=== PATIENT | male | born 1945 | race Caucasian/White ===

== ENCOUNTER 2016-10-31 19:35 | Emergency (ER) | payer OTHER ==
[~2016-10-31] VITALS: Ht 185.4 cm; Wt 149.7 kg
[2016-10-31 20:00] VITALS: BP 133/93; PULSE 85; RESP 18; TEMP 97.4; O2SAT 98
--- NOTE | 2016-10-31 20:21 | NUR ---
Patient to ER bed 4 to gown for evaluation. Side rails up. Report given to SHANAE PATTERSON.
--- NOTE | 2016-10-31 20:25 | NUR ---
Pt came into the ER in stable condition. Pt c/o right toe swelling, redness and discharge x10 days. Pt stated that it started on the big toe and now has since spread to all 5 toes. Pt states that there is pain on palpation. Pt is able to ambulate w/ steady gait. Pt has hx of ulcerative colitis, HTN,prostate and Afib. Pt stated he was at [facility] this afternoon and was sent to ER by PMD. -sob -chest pain. -fever. No acute distress noted at this time, will continue to monitor
--- NOTE | 2016-10-31 20:55 | NUR ---
ER at bedside examining patient.
[2016-10-31] MEDS ORDERED: BACITRACIN 1 GM OINT TP ONE ×2 (21:15→21:43)
[2016-10-31] MEDS ORDERED: CEFAZOLIN 1 GM IVPB PREMIX 50 ML IV ONE (21:15)
[2016-10-31 21:33] LABS: EOSINOPHILS # (AUTO) 0.3 K/uL (0.0-0.4); MEAN CORPUSCULAR HEMOGLOBIN 30 pg (27-31); MEAN CORPUSCULAR HGB CONC 33 % (32-36); MEAN CORPUSCULAR VOLUME 90 fL (79.0-98.0); MONOCYTES # (AUTO) 0.8 K/uL (0.0-1.0)
[2016-10-31 21:36] LABS: CALCIUM 9.6 mg/dL (8.4-11.0); CREATININE 0.98 mg/dL (0.55-1.30); POTASSIUM 3.8 mmol/L (3.5-5.1)
[2016-10-31 21:37] LABS: PROTHROMBIN TIME 21.7 SECS (9.5-12.5)
[2016-10-31 21:40] LABS: BASOPHILS % (AUTO) 0.5 % (0.0-2.0); EOSINOPHILS % (AUTO) 3.4 % (0.0-4.0); HEMATOCRIT 44.7 % (36-54); HEMOGLOBIN 14.8 g/dL (14.0-18.0); LYMPHOCYTES # (AUTO) 2.2 K/uL (1.0-5.5); LYMPHOCYTES % (AUTO) 25.5 % (20.5-51.5); MONOCYTES % (AUTO) 8.7 % (1.7-9.3); NEUTROPHILS # (AUTO) 5.3 K/uL (1.8-7.7); NEUTROPHILS % (AUTO) 61.9 % (40.0-70.0); PLATELET COUNT (AUTO) 167 K/uL (130-430); RED BLOOD CELL COUNT(AUTO) 4.94 MIL/uL (4.2-6.2); RED CELL DISTRIBUTION WIDTH 13.9 % (9.0-15.0); WHITE BLOOD COUNT (AUTO) 8.6 K/uL (4.8-10.8)
[2016-10-31 21:41] LABS: ALBUMIN 3.8 g/dL (3.4-4.8); TOTAL BILIRUBIN 0.5 mg/dL (0.0-1.0); TOTAL PROTEIN, SERUM 8.2 g/dL (6.4-8.3)
[2016-10-31 22:29] VITALS: BP 133/93; PULSE 85; RESP 18; TEMP 97.4; O2SAT 98
--- NOTE | 2016-10-31 22:29 | NUR ---
Patient given written and verbal discharge instructions and verbalizes understanding. ER MD Dr. Mcgregor discussed with patient the results and treatment provided. Patient in stable condition. ID arm band removed. IV catheter removed intact and dressing applied, no active bleeding. Rx of Cephalexin, Desenex and Bacitracin given. Patient educated on pain management and to follow up with PMD. Pain Scale 0/10. Opportunity for questions provided and answered.
--- NOTE | 2016-11-01 13:08 | NUR ---
DR DENTON SPEAKING TO PHARMACY REGARDING CHANGE IN RX
== END 2016-10-31 22:29 | disposition home or self-care (01) ==
LOC: SED 19:35
DX: L03.115 Cellulitis of right lower limb (principal); E11.9 Type 2 diabetes mellitus without complications
CPT/HCPCS: 36415; 80053; 85025; 85610; 96365; 99284; J0690